=== PATIENT | female | born 1960 | race Caucasian/White ===

== ENCOUNTER 2017-07-29 19:51 | Emergency (ER) | payer BC ==
[~2017-07-29] VITALS: Ht 170.2 cm; Wt 67.9 kg
[2017-07-29] MEDS ORDERED: PERCOCET 5/31 TABLET PO (23:35)
[2017-07-30 00:09] LABS: HEMATOCRIT 39.2 % (36.0-46.0); HEMOGLOBIN 13.4 G/DL (11.9-15.5); MCH 30.3 PG (29.0-34.0); MCHC 34.2 G/DL (30.0-36.0); MCV 88.7 FL (83-99); PLATELET COUNT 194 K/uL (156-360); RBC DIS.WIDTH-CV 12.3 % (11.8-14.6); RBC DIS.WIDTH-SD 39.9 % (39-53); RED BLOOD COUNT 4.42 M/uL (3.80-5.20)
[2017-07-30 00:14] VITALS: BP 116/65
[2017-07-30 00:20] LABS: ALBUMIN 3.8 g/dL (3.2-4.8); CHLORIDE 106 mEq/L (99-109); SODIUM 139 mEq/L (136-147)
[2017-07-30 00:22] LABS: GLUCOSE 159 mg/dL (70-99)
[2017-07-30 00:23] LABS: TOTAL PROTEIN 6.2 g/dL (6.4-8.3)
[2017-07-30 00:24] LABS: TOTAL BILIRUBIN 0.6 mg/dL (0.0-1.0)
[2017-07-30 00:26] LABS: ALKALINE PHOSPHATASE 58 IU/L (3-129); CREATININE 0.8 mg/dL (0.6-1.3); GFR ESTIMATE (CALCULATED) > 59 mL/min/
[2017-07-30 00:27] LABS: UREA NITROGEN (BUN) 18 mg/dL (9-23)
[2017-07-30 00:28] LABS: AST (GOT) 19 IU/L (2-34)
[2017-07-30 00:29] LABS: ALT (GPT) 19 IU/L (3-49)
== END 2017-07-30 00:14 | disposition home or self-care (01) ==
LOC: EME 19:51
PROVIDERS: Physician Assistant
PROC: 0PSJXZZ Reposition Left Radius, External Approach (ICD-10-PCS; principal; 2017-07-29)
DX: S52.572A Other intraarticular fracture of lower end of left radius, initial encounter for closed fracture (principal); S52.615A Nondisplaced fracture of left ulna styloid process, initial encounter for closed fracture; W01.0XXA Fall on same level from slipping, tripping and stumbling without subsequent striking against object, initial encounter; Y93.H2 Activity, gardening and landscaping
CPT/HCPCS: 71046; 73110; 80053; 85027; 93005; 99281; 99284; S0020